=== PATIENT | female | born 1985 | race Two or more races ===

== ENCOUNTER 2021-11-08 12:01 | Emergency (ER) | payer OTHER ==
[~2021-11-08] VITALS: Ht 160 cm; Wt 78.0 kg
[2021-11-08] MEDS ORDERED: LEVOTHYROXINE25 MCG (12:24)
== END 2021-11-08 14:11 | disposition home or self-care (01) ==
LOC: ER 12:01
DX: Z77.098 Contact with and (suspected) exposure to other hazardous, chiefly nonmedicinal, chemicals (principal); R06.02 Shortness of breath; E03.9 Hypothyroidism, unspecified